=== PATIENT | female | born 1980 | race Caucasian/White ===

== ENCOUNTER 2016-10-09 08:18 | Emergency (ER) | payer MEDICARE, MEDICAID ==
[~2016-10-09] VITALS: Ht 162.6 cm; Wt 132.0 kg
[2016-10-09 08:25] VITALS: BP 126/82
[2016-10-09] MEDS ORDERED: NAPROXEN 500 MG TABLET PO ONE (09:00)
[2016-10-09] MEDS ORDERED: HYDROcodone/APAP 5/325MG 1 TAB TABLET PO ONE (09:00)
--- NOTE | 2016-10-09 09:03 | RAD ---
Indication: Right wrist pain, fall. Time of exam 0857 hours. 3 views of the right wrist were obtained. The distal radius and ulna are intact. The carpus is intact. Metacarpals are unremarkable. No fractures are seen. Impression: No acute bony abnormality is detected.
--- NOTE | 2016-10-09 09:04 | RAD ---
Indication: Right ankle pain. Time of exam 0857 hours. 3 views of the right ankle were obtained. Moderate soft tissue swelling is noted both medial and laterally. Ankle mortise is well maintained. The talar dome is smooth. No fracture or dislocation is identified. Impression: Soft tissue swelling. No acute bony abnormality is detected.
[2016-10-09] MEDS ORDERED: NAPR500T8 PO (09:26)
--- NOTE | 2016-10-09 09:26 | PHYS DOC ---
Past Medical History Past Medical History: Anxiety, Asthma, Bipolar, Depression, GERD, Other Additional Past Medical Histor: OCD, SOCIAL ANXIETY, BORDER LINE PERSONALITY DISORDER, PTSD, CARPAL TUNNEL Past Surgical History: Tonsillectomy Additional Past Surgical Histo: D&C Alcohol Use: None Drug Use: None Adult General Chief Complaint Chief Complaint: WRIST PAIN HPI HPI Patient is a 36 year old female with history of anxiety, asthma, depression, who presents today with right wrist pain that has been going on weeks. Patient describes the pain as throbbing. She states the pain is diffusely throughout the wrist. Patient is also complaining of right ankle pain mild in nature worse on walking. She states she fell out of her bed yesterday, she stated this exacerbated her wrist pain. Patient denies any loss of consciousness when she fell. She is in the ED with a significant other, both of them are playing on the electronic device. Review of Systems Review of Systems Constitutional: Denies fever or chills [] Eyes: Denies change in visual acuity, redness, or eye pain [] HENT: Denies nasal congestion or sore throat [] Musculoskeletal: Right wrist and right ankle pain. Integument: Denies rash or skin lesions [] Neurologic: Denies headache, focal weakness or sensory changes [] Endocrine: Denies polyuria or polydipsia [] Current Medications Current Medications Current Medications Medications (Trade) Dose Ordered Sig/Roxanne Start Time Stop Time Status Last Admin Dose Admin Acetaminophen/ Hydrocodone Bitart (Lortab 5/325) 1 tab 1X ONCE 10/09/16 09:00 10/09/16 09:03 DC 10/09/16 08:46 1 TAB Naproxen (Naprosyn) 500 mg 1X ONCE 10/09/16 09:00 10/09/16 09:03 DC 10/09/16 08:46 500 MG Allergies Allergies Allergies Coded Allergies Type Severity Reaction Last Updated Verified paroxetine Allergy Severe CANT BREATH 10/09/16 Yes Penicillins Allergy Intermediate SWELLING 10/09/16 Yes Physical Exam Physical Exam Constitutional: Well developed, well nourished, no acute distress, non-toxic appearance. [] HENT: Normocephalic, atraumatic, bilateral external ears normal, oropharynx moist, no oral exudates, nose normal. [] Eyes: PERRLA, EOMI, conjunctiva normal, no discharge. [] Abdomen: Bowel sounds normal, soft, no tenderness, no masses, no pulsatile masses. [] Skin: Warm, dry, no erythema, no rash. [] Back: No tenderness, no CVA tenderness. [] Extremities: Right wrist with no obvious deformity. No scaphoid pain or tenderness on exam. Full range of motion to the right wrist. Adequate radial medial and ulnar sensation to the right wrist and hand. +2 right radial pulse. Cap refill less than 2 seconds the right wrist and fingers. Right ankle with small amount of soft tissue swelling on the right lateral aspect. Tenderness on palpation of the right lateral ankle. Full range of motion to the right ankle. Patient able to flex and extend the right foot with no difficulty. +2 right pedal pulse. Cap refill less than 2 seconds the right lower extremity. Sensation intact to the right lower extremity Neurologic: Alert and oriented X 3, normal motor function, normal sensory function, no focal deficits noted. [] Psychologic: Affect normal, judgement normal, mood normal. [] Current Patient Data Vital Signs Vital Signs Date Time Temp Pulse Resp B/P (MAP) Pulse Ox O2 Delivery O2 Flow Rate FiO2 10/09/16 08:46 16 97 Room Air 10/09/16 08:25 98.8 77 126/82 (97) 98.8 EKG EKG [] Radiology/Procedures Radiology/Procedures []PROCEDURE: ANKLE RIGHT 3V Indication: Right ankle pain. Time of exam 0857 hours. 3 views of the right ankle were obtained. Moderate soft tissue swelling is noted both medial and laterally. Ankle mortise is well maintained. The talar dome is smooth. No fracture or dislocation is identified. Impression: Soft tissue swelling. No acute bony abnormality is detected. DICTATED and SIGNED BY: LIZ CRAIN MD DATE: 10/09/16 0901 CC: FLOR HARMON APRN ~ PROCEDURE: WRIST 3V RIGHT Indication: Right wrist pain, fall. Time of exam 0857 hours. 3 views of the right wrist were obtained. The distal radius and ulna are intact. The carpus is intact. Metacarpals are unremarkable. No fractures are seen. Impression: No acute bony abnormality is detected. DICTATED and SIGNED BY: LIZ CRAIN MD DATE: 10/09/16 0900 CC: FLOR HARMON APRN ~ Course & Med Decision Making Course & Med Decision Making Pertinent Labs and Imaging studies reviewed. (See chart for details) Patient is in the ED with right wrist pain and right ankle pain after falling out of her bed yesterday. There was no loss of consciousness. Right ankle and right wrist x-rays interpreted by radiologist are negative for any acute findings. Patient has right wrist and right ankle sprains. Chris applied to the right ankle and a Velcro splint to the right wrist by the ED RN, neurovascular exam done by me is normal, cap refill less than 2 seconds to the affected extremities. Ice elevation encouraged. Discharged with naproxen for pain. Follow -up with orthopedic doctor in one week if pain continues. Dragon Disclaimer Dragon Disclaimer This electronic medical record was generated, in whole or in part, using a voice recognition dictation system. Departure Departure Impression: Primary Impression: Fall from bed Additional Impressions: Right wrist sprain Right ankle sprain Disposition: HOME, SELF-CARE Condition: STABLE Referrals: ANJUM GALAN MD follow up in one week if pain continues Patient Instructions: Ankle Sprain, Wrist Sprain with [facility] Additional Instructions: You seen for right wrist and right ankle sprain. Wear the air cast to the right ankle and the Velcro splint to the right wrist as tolerated. Ice and elevate the extremities. Take the prescribed medicine as needed for pain. Follow-up with the provided orthopedic doctor in one week if pain continues. Scripts Naproxen (NAPROXEN) 500 Mg Tablet.dr 1 TAB PO BID, #60 TAB 1 Refill Prov: FLOR HARMON APRN 10/09/16 Problem Qualifiers Primary Impression: Fall from bed Encounter type: initial encounter Qualified Codes: W06.XXXA - Fall from bed , initial encounter Additional Impressions: Right wrist sprain Encounter type: initial encounter Qualified Codes: S63.501A - Unspecified sprain of right wrist, initial encounter Right ankle sprain Encounter type: initial encounter Involved ligament of ankle: unspecified ligament Qualified Codes: S93.401A - Sprain of unspecified ligament of right ankle, initial encounter FLOR HARMON WHEEL BRAIDER October 09, 2016 09:26
== END 2016-10-09 09:45 | disposition home or self-care (01) ==
LOC: ER 08:18
DX: S63.501A Unspecified sprain of right wrist, initial encounter (principal); S93.401A Sprain of unspecified ligament of right ankle, initial encounter; F41.9 Anxiety disorder, unspecified; J45.909 Unspecified asthma, uncomplicated; F31.9 Bipolar disorder, unspecified; K21.9 Gastro-esophageal reflux disease without esophagitis; F42.9 Obsessive-compulsive disorder, unspecified; F43.10 Post-traumatic stress disorder, unspecified; Z88.8 Allergy status to other drugs, medicaments and biological substances; Z88.0 Allergy status to penicillin; W06.XXXA Fall from bed, initial encounter; Y93.89 Activity, other specified; Y92.89 Other specified places as the place of occurrence of the external cause; Y99.8 Other external cause status
CPT/HCPCS: 29125; 73110; 73610; 99284-25

== ENCOUNTER 2017-04-21 22:28 | Emergency (ER) | payer MEDICARE, MEDICAID ==
[~2017-04-21] VITALS: Ht 162.6 cm; Wt 139.3 kg
[~2017-04-21 22:28] MED LIST: NAPR500T8 PO
[2017-04-21] MEDS ORDERED: ACETAMINOPHEN 500 MG TABLET PO ONE (23:30)
[2017-04-21] MEDS ORDERED: CYCLOBENZAPRINE 10 MG TABLET. PO ONE (23:30)
[2017-04-21] MEDS ORDERED: traMADol 50 MG TABLET PO ONE (23:30)
[2017-04-21] MEDS ORDERED: METH4TAB2 PO (23:40)
[2017-04-21] MEDS ORDERED: CYCL10TA2 PO (23:40)
--- NOTE | 2017-04-21 23:40 | PHYS DOC ---
Past Medical History Past Medical History: Anxiety, Asthma, Bipolar, Depression, GERD, Other Additional Past Medical Histor: OCD, SOCIAL ANXIETY, BORDER LINE PERSONALITY DISORDER, PTSD, CARPAL TUNNEL Past Surgical History: Tonsillectomy Additional Past Surgical Histo: D&C Alcohol Use: None Drug Use: None Adult General Chief Complaint Chief Complaint: ANKLE PROBLEM HPI HPI Patient is a 36 year old female with history of depression and anxiety and bipolar who presents today with mild right lateral ankle pain that began today after she fell out of her bed. Patient denies any loss of consciousness. She has history of weak ankles and falls. Patient describes the pain as sharp and intermittent and worse on weight bearing. Review of Systems Review of Systems Constitutional: Denies fever or chills [] Musculoskeletal: Right ankle pain Integument: Denies rash or skin lesions [] Neurologic: Denies headache, focal weakness or sensory changes [] All other systems were reviewed and found to be within normal limits, except as documented in this note. Current Medications Current Medications Current Medications Medications (Trade) Dose Ordered Sig/Roxanne Start Time Stop Time Status Last Admin Dose Admin Acetaminophen (Tylenol) 1,000 mg 1X ONCE 04/21/17 23:30 04/21/17 23:32 DC Cyclobenzaprine HCl (Flexeril) 10 mg 1X ONCE 04/21/17 23:30 04/21/17 23:32 DC Tramadol HCl (Ultram) 50 mg 1X ONCE 04/21/17 23:30 04/21/17 23:31 UNV Allergies Allergies Allergies Coded Allergies Type Severity Reaction Last Updated Verified paroxetine Allergy Severe CANT BREATH 10/09/16 Yes Penicillins Allergy Intermediate SWELLING 10/09/16 Yes ibuprofen Allergy Unknown 04/21/17 Yes Physical Exam Physical Exam Constitutional: Well developed, well nourished, no acute distress, non-toxic appearance. [] Skin: Warm, dry, no erythema, no rash. [] Back: No tenderness, no CVA tenderness. [] Extremities: Right ankle with no obvious deformity. No tenderness on palpation of the right ankle. Full range of motion to the right ankle including flexion and distention of the foot. +2 right pedal pulse. Cap refill less than 2 seconds the right toes. Sensation intact to the right lower extremity. Neurologic: Alert and oriented X 3, normal motor function, normal sensory function, no focal deficits noted. [] Psychologic: Affect normal, judgement normal, mood normal. [] Current Patient Data Vital Signs Vital Signs Date Time Temp Pulse Resp B/P (MAP) Pulse Ox O2 Delivery O2 Flow Rate FiO2 04/21/17 23:10 98.7 84 20 114/66 (82) 95 Room Air 98.7 EKG EKG [] Radiology/Procedures Radiology/Procedures [] Course & Med Decision Making Course & Med Decision Making Pertinent Labs and Imaging studies reviewed. (See chart for details) Patient is in the ED with right ankle pain after falling out of bed. Right ankle x-rays interpreted by Dr. Berman were negative for any acute findings. Patient was placed in an air cast by the ED RN, neurovascular exam is intact, provided crutches. Discharged with cyclobenzaprine and Medrol Dosepak as well as instructed to take Tylenol [id number]. She states she is allergic to ibuprofen. Dragon Disclaimer Dragon Disclaimer This electronic medical record was generated, in whole or in part, using a voice recognition dictation system. Departure Departure Impression: Primary Impression: Right ankle sprain Disposition: 01 HOME, SELF-CARE Condition: STABLE Referrals: RAAD BARCENAS (PCP) SANTA MCCRACKEN MD follow up in one week Patient Instructions: Ankle Sprain Additional Instructions: You have right ankle sprain Wear the air cast as tolerated Ice and elevate the extremity Follow up with the provided orthopedic doctor in one week Scripts Cyclobenzaprine Hcl (CYCLOBENZAPRINE HCL) 10 Mg Tablet 1 TAB PO TID, #30 TAB Prov: FLOR HARMON ABAD 04/21/17 Methylprednisolone (MEDROL) 4 Mg Tab.ds.pk 1 PKG PO UD, #1 PKG Prov: FLOR HARMON ABAD 04/21/17 Problem Qualifiers Primary Impression: Right ankle sprain Encounter type: initial encounter Involved ligament of ankle: unspecified ligament Qualified Codes: S93.401A - Sprain of unspecified ligament of right ankle, initial encounter FLOR HARMON ABAD Apr 21, 2017 23:40
--- NOTE | 2017-04-22 08:00 | RAD ---
EXAM: Right ankle 3 views. HISTORY: Fall with right ankle pain. COMPARISON: 10/09/2016. FINDINGS: Three views of the right ankle are obtained. No fractures are identified. Alignment is normal. Joint spaces are maintained. IMPRESSION: 1. No fracture.
== END 2017-04-22 00:02 | disposition home or self-care (01) ==
LOC: ER 22:28
DX: S93.401A Sprain of unspecified ligament of right ankle, initial encounter (principal); F41.9 Anxiety disorder, unspecified; J45.909 Unspecified asthma, uncomplicated; F31.9 Bipolar disorder, unspecified; K21.9 Gastro-esophageal reflux disease without esophagitis; F42.9 Obsessive-compulsive disorder, unspecified; F43.10 Post-traumatic stress disorder, unspecified; Z88.0 Allergy status to penicillin; Z88.6 Allergy status to analgesic agent; Z88.8 Allergy status to other drugs, medicaments and biological substances; W06.XXXA Fall from bed, initial encounter; Y93.89 Activity, other specified; Y92.89 Other specified places as the place of occurrence of the external cause; Y99.8 Other external cause status
CPT/HCPCS: 29515; 73610; 99284-25

== ENCOUNTER 2017-06-23 20:26 | Emergency (ER) | payer MEDICARE, MEDICAID ==
[2017-06-23 20:58] LABS: URINE HCG POC HCG NEGATIVE (Negative)
[2017-06-23 21:10] LABS: ADD MAN DIFF? NO
[2017-06-23 21:12] LABS: BASO % 0 % (0-3); EOS # 0.2 x10^3/uL (0.0-0.7); EOS % 1 % (0-3); HEMATOCRIT 37.9 % (36.0-47.0); HEMOGLOBIN 12.8 g/dL (12.0-15.5); LYMPH # 2.1 x10^3/uL (1.0-4.8); LYMPH % 17 % (24-48); MEAN CORPUSCULAR HEMOGLOBIN 28 pg (25-35); MEAN CORPUSCULAR HGB CONC 34 g/dL (31-37); MEAN CORPUSCULAR VOLUME 83 fL (79-100); MONO # 0.5 x10^3/uL (0.0-1.1); MONO % 4 % (0-9); NEUT # 9.3 x10^3uL (1.8-7.7); NEUT % 77 % (31-73); PLATELET COUNT 358 x10^3/uL (140-400); RED BLOOD COUNT 4.59 x10^6/uL (3.50-5.40); RED CELL DISTRIBUTION WIDTH 14.4 % (11.5-14.5); WHITE BLOOD COUNT 12.2 x10^3/uL (4.0-11.0)
[2017-06-23 21:15] LABS: BILIRUBIN,URINE NEGATIVE (NEG); CLARITY,URINE CLEAR; COLOR,URINE YELLOW; GLUCOSE,URINE NEGATIVE (NEG); NITRITE,URINE NEGATIVE (NEG); PH,URINE 5.5; PROTEIN,URINE NEGATIVE (NEG-TRACE); UROBILINOGEN,URINE 0.2 mg/dL (0.2 mg/dL)
[2017-06-23 21:21] LABS: ANION GAP 8 (6-14); BLOOD UREA NITROGEN 8 mg/dL (7-20); BUN/CREATININE RATIO 11 (6-20); CALCIUM 8.8 mg/dL (8.5-10.1); CARBON DIOXIDE 28 mmol/L (21-32); CHLORIDE 105 mmol/L (98-107); CREATININE 0.7 mg/dL (0.6-1.0); GFR 93.6; GLUCOSE 98 mg/dL (70-99); POTASSIUM 3.5 mmol/L (3.5-5.1); SODIUM 141 mmol/L (136-145)
[2017-06-23 21:27] LABS: ALBUMIN 3.6 g/dL (3.4-5.0); ALBUMIN/GLOBULIN RATIO 0.9 (1.0-1.7); ALK PHOS 97 U/L (46-116); ALT (SGPT) 23 U/L (14-59); AST (SGOT) 13 U/L (15-37); BACTERIA,URINE MODERATE /HPF (0-FEW); LIPASE 85 U/L (73-393); RBC,URINE 0 /HPF (0-2); SQUAMOUS EPITHELIAL CELL,UR MANY /LPF; TOTAL BILIRUBIN 0.3 mg/dL (0.2-1.0); TOTAL PROTEIN 7.5 g/dL (6.4-8.2)
[2017-06-23] MEDS: ONDANSETRON PF 4 MG/2 ML VIAL. IV (22:04)
[2017-06-23] MEDS: HYDROmorphone 2 MG/ML VIAL IV/SQ (22:04)
[2017-06-23] MEDS: IV NORMAL SALINE 1000ML BAG 1,000 ML IV (22:05)
[2017-06-23] MEDS ORDERED: CONTRAST GIVEN MC (22:30)
[2017-06-23] MEDS: IOHEXOL 300 MG/ML 100ML VIAL. IV (22:40)
== END 2017-06-24 00:25 | disposition home or self-care (01) ==
LOC: ER 06-24 00:25
DX: R10.31 Right lower quadrant pain (principal); D72.829 Elevated white blood cell count, unspecified; K21.9 Gastro-esophageal reflux disease without esophagitis; J45.909 Unspecified asthma, uncomplicated; F43.10 Post-traumatic stress disorder, unspecified; F42.9 Obsessive-compulsive disorder, unspecified; F31.9 Bipolar disorder, unspecified; F12.10 Cannabis abuse, uncomplicated; Z88.0 Allergy status to penicillin; Z88.8 Allergy status to other drugs, medicaments and biological substances
CPT/HCPCS: 36415; 74177; 76830; 76856; 80053; 81001; 81025; 83690; 85025; 87086; 87186; 96361; 96374; 96375; 99285-25; J1170; J2405; J7030; Q9967

== ENCOUNTER 2017-07-15 09:22 | Day surgery (SDC) | payer MEDICARE, MEDICAID ==
[~2017-07-15 09:22] MED LIST changes: +HYDROmorphone 2 MG/ML VIAL IV; +LIDOCAINE 1% PF 2 ML VIAL. ID; +LIDOCAINE 2% PF Vial for OR 5 ML VIAL.; +MIDAZOLAM HCL/PF 2 MG/2 ML VIAL.; -NAPR500T8 PO; +ONDANSETRON PF 4 MG/2 ML VIAL. IV; +PROPOFOL 20 ML IV; +ROCURONIUM 50 MG/5 ML VIAL.; +fentaNYL PF VIAL 100 MCG/2 ML VIAL; +fentaNYL PF VIAL 100 MCG/2 ML VIAL IV
[2017-07-15] MEDS ORDERED: SURGICEL HEMOSTAT 4X8 EACH. ×2 (09:47)
[2017-07-15 10:03] LABS: NEG OBC UR NEG; POS OBC UR POS; U PREG PATIENT NEGATIVE (NEG)
[2017-07-15 10:13] LABS: POC GLUCOSE 134 mg/dL (70-99)
[2017-07-15] MEDS: IV RINGERS,LACTATED 1000ML 1,000 ML IV ×2 (10:20)
[2017-07-15] MEDS: CLINDAMYCIN 900MG PREMIX 50 ML IV ×2 (10:35)
[2017-07-15] MEDS: BUPIVACAINE-EPI 0.25%-1:200000 50 ML VIAL. ×2 (10:50)
[2017-07-15] MEDS ORDERED: ONDANSETRON PF 4 MG/2 ML VIAL. ×2 (11:03)
[2017-07-15] MEDS ORDERED: GLYCOPYRROLATE 1 MG/5 ML VIAL. ×2 (11:03)
[2017-07-15] MEDS ORDERED: DEXAMETHASONE SOD PHOS 20 MG/5 ML VIAL. ×2 (11:03)
[2017-07-15] MEDS ORDERED: NEOSTIGMINE METHYLSULFATE 5 MG/5 ML SYRINGE. ×2 (11:03)
[2017-07-15] MEDS ORDERED: ePHEDrine PF IN SALINE 50 MG/5 ML DISP.SYRIN IV (11:04)
[2017-07-15] MEDS ORDERED: fentaNYL PF VIAL 100 MCG/2 ML VIAL ×2 (11:48)
[2017-07-15] MEDS ORDERED: SEVOFLURANE > 120 MINUTES. IH ×2 (12:04)
[2017-07-15 12:31] LABS: POC GLUCOSE 144 mg/dL (70-99)
[2017-07-15] MEDS: PROCHLORPERAZINE 10 MG/2 ML VIAL. IV ×2 (12:39)
[2017-07-15] MEDS: fentaNYL PF VIAL 100 MCG/2 ML VIAL IV ×4 (12:40→12:47)
[2017-07-15] MEDS: MORPHINE SULFATE 2 MG/ML DISP.SYRIN. IV ×4 (12:57→13:13)
[2017-07-15] MEDS ORDERED: oxyCODONE/APAP 7.5/325 1 TAB TABLET PO ×2 (13:15)
[2017-07-15] MEDS: oxyCODONE/APAP 7.5/325 1 TAB TABLET PO ×2 (13:48)
== END 2017-07-15 14:32 | disposition home or self-care (01) ==
LOC: SURG 09:22
DX: N83.201 Unspecified ovarian cyst, right side (principal); E78.00 Pure hypercholesterolemia, unspecified; E66.9 Obesity, unspecified; F41.9 Anxiety disorder, unspecified; F17.200 Nicotine dependence, unspecified, uncomplicated; Z72.0 Tobacco use; Z79.899 Other long term (current) drug therapy; Z86.69 Personal history of other diseases of the nervous system and sense organs; Z87.440 Personal history of urinary (tract) infections; Z87.39 Personal history of other diseases of the musculoskeletal system and connective tissue; Z72.89 Other problems related to lifestyle; Z88.1 Allergy status to other antibiotic agents; Z88.0 Allergy status to penicillin; Z88.8 Allergy status to other drugs, medicaments and biological substances
CPT/HCPCS: 58661; 81025; 82962; 88307; A4215; C1782; J0780; J1100; J2250; J2270; J2405; J2704; J2710; J3010; J3490; J7030; J7120

== ENCOUNTER 2017-07-18 03:55 | Observation (INO) | payer MEDICARE, MEDICAID ==
[2017-07-18] MEDS ORDERED: ACETAMINOPHEN 325 MG TABLET. PO ×2 (04:30)
[2017-07-18 04:47] LABS: ADD MAN DIFF? NO
[2017-07-18 04:49] LABS: BASO # 0.1 x10^3/uL (0.0-0.2); BASO % 1 % (0-3); EOS # 0.3 x10^3/uL (0.0-0.7); EOS % 3 % (0-3); HEMATOCRIT 37.3 % (36.0-47.0); HEMOGLOBIN 12.5 g/dL (12.0-15.5); LYMPH # 2.4 x10^3/uL (1.0-4.8); LYMPH % 21 % (24-48); MEAN CORPUSCULAR HEMOGLOBIN 28 pg (25-35); MEAN CORPUSCULAR HGB CONC 34 g/dL (31-37); MEAN CORPUSCULAR VOLUME 82 fL (79-100); MONO # 0.6 x10^3/uL (0.0-1.1); MONO % 5 % (0-9); NEUT # 7.8 x10^3uL (1.8-7.7); NEUT % 70 % (31-73); PLATELET COUNT 336 x10^3/uL (140-400); RED BLOOD COUNT 4.55 x10^6/uL (3.50-5.40); RED CELL DISTRIBUTION WIDTH 14.5 % (11.5-14.5); WHITE BLOOD COUNT 11.1 x10^3/uL (4.0-11.0)
[2017-07-18 04:56] LABS: ANION GAP 5 (6-14); BLOOD UREA NITROGEN 13 mg/dL (7-20); BUN/CREATININE RATIO 13 (6-20); CALCIUM 9.2 mg/dL (8.5-10.1); CARBON DIOXIDE 31 mmol/L (21-32); CHLORIDE 102 mmol/L (98-107); GFR 62.1; GLUCOSE 122 mg/dL (70-99); POTASSIUM 3.9 mmol/L (3.5-5.1); SODIUM 138 mmol/L (136-145)
[2017-07-18] MEDS ORDERED: fentaNYL PF VIAL 100 MCG/2 ML VIAL IV ×2 (05:00)
[2017-07-18] MEDS ORDERED: ONDANSETRON PF 4 MG/2 ML VIAL. IV ×2 (05:00)
[2017-07-18] MEDS: IV NORMAL SALINE 1000ML BAG 1,000 ML IV ×6 (05:03→21:00)
[2017-07-18] MEDS: ONDANSETRON PF 4 MG/2 ML VIAL. IV ×2 (05:03)
[2017-07-18 05:04] LABS: ALBUMIN 3.4 g/dL (3.4-5.0); ALBUMIN/GLOBULIN RATIO 0.9 (1.0-1.7); ALK PHOS 97 U/L (46-116); ALT (SGPT) 34 U/L (14-59); AST (SGOT) 23 U/L (15-37); TOTAL BILIRUBIN 0.2 mg/dL (0.2-1.0); TOTAL PROTEIN 7.1 g/dL (6.4-8.2)
[2017-07-18] MEDS: fentaNYL PF VIAL 100 MCG/2 ML VIAL IV ×2 (05:04)
[2017-07-18] MEDS: ceFAZolin 1GM IVPB FOR OMNI 1 GM/50 ML BAG IV ×2 (05:04)
[2017-07-18] MEDS: oxyCODONE/APAP 7.5/325 1 TAB TABLET PO ×8 (09:36→22:02)
[2017-07-19] MEDS: oxyCODONE/APAP 7.5/325 1 TAB TABLET PO ×6 (04:37→13:17)
== END 2017-07-19 18:08 | disposition home or self-care (01) ==
LOC: ER 03:55 → 3 NORTH 04:24
DX: T81.30XA Disruption of wound, unspecified, initial encounter (principal); T81.4XXA Infection following a procedure, initial encounter; J45.909 Unspecified asthma, uncomplicated; K21.9 Gastro-esophageal reflux disease without esophagitis; F43.10 Post-traumatic stress disorder, unspecified; F42.9 Obsessive-compulsive disorder, unspecified
CPT/HCPCS: 36415; 80053; 85025; 87071; 87075; 87205; 96361; 96374; 96375; 99285; G0378; G0379; J0690; J2405; J3010; J7030

== ENCOUNTER → 2017-07-23 | Outpatient (CLI) | payer MEDICARE, MEDICAID | END | disposition home or self-care (01) | LOC: PMGWOUND 09:28 | DX: T81.31XA Disruption of external operation (surgical) wound, not elsewhere classified, initial encounter (principal); F31.9 Bipolar disorder, unspecified; F41.8 Other specified anxiety disorders; F43.10 Post-traumatic stress disorder, unspecified; E78.5 Hyperlipidemia, unspecified; K21.9 Gastro-esophageal reflux disease without esophagitis; J45.909 Unspecified asthma, uncomplicated; F17.200 Nicotine dependence, unspecified, uncomplicated; F12.10 Cannabis abuse, uncomplicated; E78.00 Pure hypercholesterolemia, unspecified; E66.9 Obesity, unspecified; Z68.43 Body mass index [BMI] 50.0-59.9, adult; Z72.89 Other problems related to lifestyle; Y83.8 Other surgical procedures as the cause of abnormal reaction of the patient, or of later complication, without mention of misadventure at the time of the procedure | CPT/HCPCS: 97605; 97607 ==

== ENCOUNTER → 2017-07-26 | Outpatient (CLI) | payer MEDICARE, MEDICAID | END | disposition home or self-care (01) | LOC: PMGWOUND 11:26 | DX: T81.31XD Disruption of external operation (surgical) wound, not elsewhere classified, subsequent encounter (principal); F31.9 Bipolar disorder, unspecified; F41.8 Other specified anxiety disorders; F43.10 Post-traumatic stress disorder, unspecified; E78.5 Hyperlipidemia, unspecified; K21.9 Gastro-esophageal reflux disease without esophagitis; J45.909 Unspecified asthma, uncomplicated; F17.200 Nicotine dependence, unspecified, uncomplicated; F12.10 Cannabis abuse, uncomplicated; E78.00 Pure hypercholesterolemia, unspecified; E66.9 Obesity, unspecified; Z68.43 Body mass index [BMI] 50.0-59.9, adult; Z72.89 Other problems related to lifestyle; Y83.8 Other surgical procedures as the cause of abnormal reaction of the patient, or of later complication, without mention of misadventure at the time of the procedure | CPT/HCPCS: 97605; 97607 ==

== ENCOUNTER → 2017-07-30 | Outpatient (CLI) | payer MEDICARE, MEDICAID | END | disposition home or self-care (01) | LOC: PMGWOUND 11:31 | DX: T81.31XD Disruption of external operation (surgical) wound, not elsewhere classified, subsequent encounter (principal); F31.9 Bipolar disorder, unspecified; F41.8 Other specified anxiety disorders; F43.10 Post-traumatic stress disorder, unspecified; E78.5 Hyperlipidemia, unspecified; R11.2 Nausea with vomiting, unspecified; K21.9 Gastro-esophageal reflux disease without esophagitis; J45.909 Unspecified asthma, uncomplicated; F17.200 Nicotine dependence, unspecified, uncomplicated; F12.10 Cannabis abuse, uncomplicated; E78.00 Pure hypercholesterolemia, unspecified; E66.9 Obesity, unspecified; Z68.43 Body mass index [BMI] 50.0-59.9, adult; Z72.89 Other problems related to lifestyle; Y83.8 Other surgical procedures as the cause of abnormal reaction of the patient, or of later complication, without mention of misadventure at the time of the procedure | CPT/HCPCS: 97605; 97607 ==

== ENCOUNTER 2017-07-31 21:11 | Emergency (ER) | payer MEDICARE, MEDICAID ==
[2017-07-31] MEDS: oxyCODONE/APAP 7.5/325 1 TAB TABLET PO (23:13)
[2017-07-31 23:28] LABS: INFLUENZA A PATIENT NEGATIVE (NEGATIVE)
[2017-07-31 23:31] LABS: INFLUENZA B PATIENT POSITIVE (NEGATIVE); OBC FLU VALID
[2017-07-31] MEDS: OSELTAMIVIR 75 MG CAPSULE PO (23:45)
== END 2017-08-01 00:20 | disposition home or self-care (01) ==
LOC: ER 08-01 00:20
DX: J10.1 Influenza due to other identified influenza virus with other respiratory manifestations (principal); F43.10 Post-traumatic stress disorder, unspecified; J45.909 Unspecified asthma, uncomplicated; F42.9 Obsessive-compulsive disorder, unspecified; K21.9 Gastro-esophageal reflux disease without esophagitis; F31.9 Bipolar disorder, unspecified; Z90.721 Acquired absence of ovaries, unilateral; F12.10 Cannabis abuse, uncomplicated; Z88.0 Allergy status to penicillin; Z88.8 Allergy status to other drugs, medicaments and biological substances
CPT/HCPCS: 71046; 87804; 87804-59; 99285-25

== ENCOUNTER → 2017-08-02 | Outpatient (CLI) | payer MEDICARE, MEDICAID | END | disposition home or self-care (01) | LOC: PMGWOUND 11:33 | DX: T81.31XD Disruption of external operation (surgical) wound, not elsewhere classified, subsequent encounter (principal); F31.9 Bipolar disorder, unspecified; F41.8 Other specified anxiety disorders; F43.10 Post-traumatic stress disorder, unspecified; E78.5 Hyperlipidemia, unspecified; R11.2 Nausea with vomiting, unspecified; K21.9 Gastro-esophageal reflux disease without esophagitis; J45.909 Unspecified asthma, uncomplicated; F12.10 Cannabis abuse, uncomplicated; E78.00 Pure hypercholesterolemia, unspecified; E66.9 Obesity, unspecified; Z68.43 Body mass index [BMI] 50.0-59.9, adult; Z87.891 Personal history of nicotine dependence; Z72.89 Other problems related to lifestyle; Y83.8 Other surgical procedures as the cause of abnormal reaction of the patient, or of later complication, without mention of misadventure at the time of the procedure | CPT/HCPCS: 97605 ==

== ENCOUNTER → 2017-08-05 | Outpatient (CLI) | payer MEDICARE, MEDICAID | END | disposition home or self-care (01) | LOC: PMGWOUND 12:10 | DX: T81.31XD Disruption of external operation (surgical) wound, not elsewhere classified, subsequent encounter (principal); F31.9 Bipolar disorder, unspecified; F41.8 Other specified anxiety disorders; F43.10 Post-traumatic stress disorder, unspecified; E78.5 Hyperlipidemia, unspecified; R11.2 Nausea with vomiting, unspecified; K21.9 Gastro-esophageal reflux disease without esophagitis; J45.909 Unspecified asthma, uncomplicated; F12.10 Cannabis abuse, uncomplicated; E78.00 Pure hypercholesterolemia, unspecified; E66.9 Obesity, unspecified; Z68.43 Body mass index [BMI] 50.0-59.9, adult; Z87.891 Personal history of nicotine dependence; Z72.89 Other problems related to lifestyle; Y83.8 Other surgical procedures as the cause of abnormal reaction of the patient, or of later complication, without mention of misadventure at the time of the procedure | CPT/HCPCS: 97605 ==

== ENCOUNTER → 2017-08-07 | Outpatient (CLI) | payer MEDICARE, MEDICAID | END | disposition home or self-care (01) | LOC: PMGWOUND 12:04 | DX: T81.89XD Other complications of procedures, not elsewhere classified, subsequent encounter (principal); F31.9 Bipolar disorder, unspecified; K21.9 Gastro-esophageal reflux disease without esophagitis; E78.5 Hyperlipidemia, unspecified; E66.9 Obesity, unspecified; E78.00 Pure hypercholesterolemia, unspecified; J45.909 Unspecified asthma, uncomplicated; F12.10 Cannabis abuse, uncomplicated; Z87.891 Personal history of nicotine dependence; Z90.721 Acquired absence of ovaries, unilateral; F41.8 Other specified anxiety disorders; Z72.89 Other problems related to lifestyle; Y83.8 Other surgical procedures as the cause of abnormal reaction of the patient, or of later complication, without mention of misadventure at the time of the procedure | CPT/HCPCS: 97605 ==

== ENCOUNTER → 2017-08-09 | Outpatient (CLI) | payer MEDICARE, MEDICAID | END | disposition home or self-care (01) | LOC: PMGWOUND 11:30 | DX: T81.31XD Disruption of external operation (surgical) wound, not elsewhere classified, subsequent encounter (principal); F31.9 Bipolar disorder, unspecified; F12.10 Cannabis abuse, uncomplicated; K21.9 Gastro-esophageal reflux disease without esophagitis; E78.5 Hyperlipidemia, unspecified; E66.9 Obesity, unspecified; F41.8 Other specified anxiety disorders; J45.909 Unspecified asthma, uncomplicated; E78.00 Pure hypercholesterolemia, unspecified; Z87.891 Personal history of nicotine dependence; Z72.89 Other problems related to lifestyle; Z68.43 Body mass index [BMI] 50.0-59.9, adult; Y83.8 Other surgical procedures as the cause of abnormal reaction of the patient, or of later complication, without mention of misadventure at the time of the procedure | CPT/HCPCS: 97605 ==

== ENCOUNTER → 2017-08-12 | Outpatient (CLI) | payer MEDICARE, MEDICAID | END | disposition home or self-care (01) | LOC: PMGWOUND 11:16 | DX: T81.31XD Disruption of external operation (surgical) wound, not elsewhere classified, subsequent encounter (principal); F31.9 Bipolar disorder, unspecified; F12.10 Cannabis abuse, uncomplicated; K21.9 Gastro-esophageal reflux disease without esophagitis; E78.5 Hyperlipidemia, unspecified; E66.9 Obesity, unspecified; F41.8 Other specified anxiety disorders; J45.909 Unspecified asthma, uncomplicated; E78.00 Pure hypercholesterolemia, unspecified; Z87.891 Personal history of nicotine dependence; Z72.89 Other problems related to lifestyle; Z68.43 Body mass index [BMI] 50.0-59.9, adult; Y83.8 Other surgical procedures as the cause of abnormal reaction of the patient, or of later complication, without mention of misadventure at the time of the procedure | CPT/HCPCS: 97605 ==

== ENCOUNTER → 2017-08-14 | Outpatient (CLI) | payer MEDICARE, MEDICAID | END | disposition home or self-care (01) | LOC: PMGWOUND 07:46 | DX: T81.31XD Disruption of external operation (surgical) wound, not elsewhere classified, subsequent encounter (principal); F31.9 Bipolar disorder, unspecified; F12.10 Cannabis abuse, uncomplicated; K21.9 Gastro-esophageal reflux disease without esophagitis; E78.5 Hyperlipidemia, unspecified; E66.9 Obesity, unspecified; F41.8 Other specified anxiety disorders; J45.909 Unspecified asthma, uncomplicated; E78.00 Pure hypercholesterolemia, unspecified; Z87.891 Personal history of nicotine dependence; Z72.89 Other problems related to lifestyle; Z68.43 Body mass index [BMI] 50.0-59.9, adult; Y83.8 Other surgical procedures as the cause of abnormal reaction of the patient, or of later complication, without mention of misadventure at the time of the procedure | CPT/HCPCS: 97605 ==

== ENCOUNTER → 2017-08-16 | Outpatient (CLI) | payer MEDICARE, MEDICAID | END | disposition home or self-care (01) | LOC: PMGWOUND 07:57 | DX: T81.31XD Disruption of external operation (surgical) wound, not elsewhere classified, subsequent encounter (principal); F31.9 Bipolar disorder, unspecified; F12.10 Cannabis abuse, uncomplicated; K21.9 Gastro-esophageal reflux disease without esophagitis; E78.5 Hyperlipidemia, unspecified; E66.9 Obesity, unspecified; F41.8 Other specified anxiety disorders; J45.909 Unspecified asthma, uncomplicated; E78.00 Pure hypercholesterolemia, unspecified; Z87.891 Personal history of nicotine dependence; Z72.89 Other problems related to lifestyle; Z68.43 Body mass index [BMI] 50.0-59.9, adult; Y83.8 Other surgical procedures as the cause of abnormal reaction of the patient, or of later complication, without mention of misadventure at the time of the procedure | CPT/HCPCS: 97605 ==

== ENCOUNTER → 2017-08-19 | Outpatient (CLI) | payer MEDICARE, MEDICAID | END | disposition home or self-care (01) | LOC: PMGWOUND 07:34 | DX: T81.31XD Disruption of external operation (surgical) wound, not elsewhere classified, subsequent encounter (principal); F31.9 Bipolar disorder, unspecified; F12.10 Cannabis abuse, uncomplicated; K21.9 Gastro-esophageal reflux disease without esophagitis; E78.5 Hyperlipidemia, unspecified; E66.9 Obesity, unspecified; F41.8 Other specified anxiety disorders; J45.909 Unspecified asthma, uncomplicated; E78.00 Pure hypercholesterolemia, unspecified; Z87.891 Personal history of nicotine dependence; Z72.89 Other problems related to lifestyle; Z68.43 Body mass index [BMI] 50.0-59.9, adult; Y83.8 Other surgical procedures as the cause of abnormal reaction of the patient, or of later complication, without mention of misadventure at the time of the procedure | CPT/HCPCS: 97605 ==

== ENCOUNTER → 2017-08-21 | Outpatient (CLI) | payer MEDICARE, MEDICAID | END | disposition home or self-care (01) | LOC: PMGWOUND 07:48 | DX: T81.31XD Disruption of external operation (surgical) wound, not elsewhere classified, subsequent encounter (principal); F31.9 Bipolar disorder, unspecified; E78.5 Hyperlipidemia, unspecified; F41.9 Anxiety disorder, unspecified; K21.9 Gastro-esophageal reflux disease without esophagitis; E66.9 Obesity, unspecified; Z68.43 Body mass index [BMI] 50.0-59.9, adult; E78.00 Pure hypercholesterolemia, unspecified; F12.10 Cannabis abuse, uncomplicated; Z87.891 Personal history of nicotine dependence; Y83.8 Other surgical procedures as the cause of abnormal reaction of the patient, or of later complication, without mention of misadventure at the time of the procedure | CPT/HCPCS: 97605 ==

== ENCOUNTER → 2017-08-23 | Outpatient (CLI) | payer MEDICARE, MEDICAID | END | disposition home or self-care (01) | LOC: PMGWOUND 07:45 | DX: T81.31XD Disruption of external operation (surgical) wound, not elsewhere classified, subsequent encounter (principal); F31.9 Bipolar disorder, unspecified; E78.5 Hyperlipidemia, unspecified; F41.9 Anxiety disorder, unspecified; K21.9 Gastro-esophageal reflux disease without esophagitis; E66.9 Obesity, unspecified; E78.00 Pure hypercholesterolemia, unspecified; F12.10 Cannabis abuse, uncomplicated; Z68.43 Body mass index [BMI] 50.0-59.9, adult; Z87.891 Personal history of nicotine dependence; Y83.8 Other surgical procedures as the cause of abnormal reaction of the patient, or of later complication, without mention of misadventure at the time of the procedure | CPT/HCPCS: 97605 ==

== ENCOUNTER → 2017-08-26 | Outpatient (CLI) | payer MEDICARE, MEDICAID | END | disposition home or self-care (01) | LOC: PMGWOUND 07:37 | DX: T81.31XD Disruption of external operation (surgical) wound, not elsewhere classified, subsequent encounter (principal); F31.9 Bipolar disorder, unspecified; E78.5 Hyperlipidemia, unspecified; F41.9 Anxiety disorder, unspecified; K21.9 Gastro-esophageal reflux disease without esophagitis; E66.9 Obesity, unspecified; E78.00 Pure hypercholesterolemia, unspecified; F12.10 Cannabis abuse, uncomplicated; Z68.43 Body mass index [BMI] 50.0-59.9, adult; Z87.891 Personal history of nicotine dependence; Y83.8 Other surgical procedures as the cause of abnormal reaction of the patient, or of later complication, without mention of misadventure at the time of the procedure | CPT/HCPCS: 97605 ==

== ENCOUNTER → 2017-08-28 | Outpatient (CLI) | payer MEDICARE, MEDICAID | END | disposition home or self-care (01) | LOC: PMGWOUND 08:26 | DX: T81.31XD Disruption of external operation (surgical) wound, not elsewhere classified, subsequent encounter (principal); F31.9 Bipolar disorder, unspecified; E78.5 Hyperlipidemia, unspecified; F41.9 Anxiety disorder, unspecified; K21.9 Gastro-esophageal reflux disease without esophagitis; E66.9 Obesity, unspecified; E78.00 Pure hypercholesterolemia, unspecified; F12.10 Cannabis abuse, uncomplicated; Z68.43 Body mass index [BMI] 50.0-59.9, adult; Z87.891 Personal history of nicotine dependence; Y83.8 Other surgical procedures as the cause of abnormal reaction of the patient, or of later complication, without mention of misadventure at the time of the procedure | CPT/HCPCS: 97605 ==

== ENCOUNTER → 2017-08-30 | Outpatient (CLI) | payer MEDICARE, MEDICAID | END | disposition home or self-care (01) | LOC: PMGWOUND 07:39 | DX: T81.31XD Disruption of external operation (surgical) wound, not elsewhere classified, subsequent encounter (principal); F31.9 Bipolar disorder, unspecified; E78.5 Hyperlipidemia, unspecified; F41.9 Anxiety disorder, unspecified; K21.9 Gastro-esophageal reflux disease without esophagitis; E66.9 Obesity, unspecified; E78.00 Pure hypercholesterolemia, unspecified; F12.10 Cannabis abuse, uncomplicated; Z68.43 Body mass index [BMI] 50.0-59.9, adult; Z87.891 Personal history of nicotine dependence; Y83.8 Other surgical procedures as the cause of abnormal reaction of the patient, or of later complication, without mention of misadventure at the time of the procedure | CPT/HCPCS: 97605 ==

== ENCOUNTER → 2017-09-02 | Outpatient (CLI) | payer MEDICARE, MEDICAID | END | disposition home or self-care (01) | LOC: PMGWOUND 07:46 | DX: T81.31XD Disruption of external operation (surgical) wound, not elsewhere classified, subsequent encounter (principal); F31.9 Bipolar disorder, unspecified; E78.5 Hyperlipidemia, unspecified; F41.9 Anxiety disorder, unspecified; K21.9 Gastro-esophageal reflux disease without esophagitis; E66.9 Obesity, unspecified; E78.00 Pure hypercholesterolemia, unspecified; F12.10 Cannabis abuse, uncomplicated; Z68.43 Body mass index [BMI] 50.0-59.9, adult; Z87.891 Personal history of nicotine dependence; Y83.8 Other surgical procedures as the cause of abnormal reaction of the patient, or of later complication, without mention of misadventure at the time of the procedure | CPT/HCPCS: 99213 ==

== ENCOUNTER → 2017-09-09 | Outpatient (CLI) | payer MEDICARE, MEDICAID | END | disposition home or self-care (01) | LOC: PMGWOUND 08:04 | DX: T81.31XD Disruption of external operation (surgical) wound, not elsewhere classified, subsequent encounter (principal); F31.9 Bipolar disorder, unspecified; K21.9 Gastro-esophageal reflux disease without esophagitis; E66.9 Obesity, unspecified; J45.909 Unspecified asthma, uncomplicated; E78.00 Pure hypercholesterolemia, unspecified; F41.8 Other specified anxiety disorders; F12.10 Cannabis abuse, uncomplicated; Z87.891 Personal history of nicotine dependence; Z68.43 Body mass index [BMI] 50.0-59.9, adult; Z72.89 Other problems related to lifestyle; Y83.8 Other surgical procedures as the cause of abnormal reaction of the patient, or of later complication, without mention of misadventure at the time of the procedure | CPT/HCPCS: G0463 ==

== ENCOUNTER 2017-10-14 01:27 | Emergency (ER) | payer MEDICARE, MEDICAID | END 2017-10-14 02:46 | disposition home or self-care (01) | LOC: ER 01:27 | DX: K08.89 Other specified disorders of teeth and supporting structures (principal); E78.00 Pure hypercholesterolemia, unspecified; F42.9 Obsessive-compulsive disorder, unspecified; J45.909 Unspecified asthma, uncomplicated; F43.10 Post-traumatic stress disorder, unspecified; K21.9 Gastro-esophageal reflux disease without esophagitis; F12.10 Cannabis abuse, uncomplicated; F31.9 Bipolar disorder, unspecified; Z88.0 Allergy status to penicillin; Z88.6 Allergy status to analgesic agent; Z88.8 Allergy status to other drugs, medicaments and biological substances | CPT/HCPCS: 99283 ==

== ENCOUNTER 2018-01-03 00:21 | Emergency (ER) | payer MEDICARE, MEDICAID ==
[~2018-01-03] VITALS: Ht 162.6 cm; Wt 131.5 kg
[~2018-01-03 00:21] MED LIST changes: +ACET500T33 PO; +ALPR0.5T PO; +ATOR10TA PO; +CHOL2000 PO; +CLIN150C14 PO; +CYCL10TA2 PO; +HYDR-2758 PO; -HYDROmorphone 2 MG/ML VIAL IV; +LEVO750T31 PO; -LIDOCAINE 1% PF 2 ML VIAL. ID; -LIDOCAINE 2% PF Vial for OR 5 ML VIAL.; +METF500T5 PO; +METH4TAB2 PO; -MIDAZOLAM HCL/PF 2 MG/2 ML VIAL.; +NAPR500T8 PO; +ONDA4TAB10 SL; -ONDANSETRON PF 4 MG/2 ML VIAL. IV; +OSEL75CA PO; +OXYC-327 PO; +PRAZ2CAP2 PO; -PROPOFOL 20 ML IV; -ROCURONIUM 50 MG/5 ML VIAL.; +SERT100T PO; +TRAM-48 PO; -fentaNYL PF VIAL 100 MCG/2 ML VIAL; -fentaNYL PF VIAL 100 MCG/2 ML VIAL IV
[2018-01-03 01:12] LABS: BILIRUBIN,URINE SMALL (NEG); CLARITY,URINE CLEAR; COLOR,URINE YELLOW; NITRITE,URINE NEGATIVE (NEG); PROTEIN,URINE NEGATIVE (NEG-TRACE); UROBILINOGEN,URINE 0.2 mg/dL (0.2 mg/dL)
[2018-01-03 01:20] LABS: BACTERIA,URINE MANY /HPF (0-FEW); RBC,URINE OCC /HPF (0-2); SQUAMOUS EPITHELIAL CELL,UR MOD /LPF
[2018-01-03 01:25] LABS: BASO % 0 % (0-3); EOS # 0.1 x10^3/uL (0.0-0.7); EOS % 1 % (0-3); HEMOGLOBIN 12.3 g/dL (12.0-15.5); LYMPH # 1.6 x10^3/uL (1.0-4.8); LYMPH % 13 % (24-48); MEAN CORPUSCULAR HEMOGLOBIN 27 pg (25-35); MEAN CORPUSCULAR HGB CONC 34 g/dL (31-37); MEAN CORPUSCULAR VOLUME 80 fL (79-100); MONO # 0.5 x10^3/uL (0.0-1.1); MONO % 4 % (0-9); NEUT # 9.7 x10^3uL (1.8-7.7); NEUT % 82 % (31-73); PLATELET COUNT 326 x10^3/uL (140-400); RED BLOOD COUNT 4.49 x10^6/uL (3.50-5.40); RED CELL DISTRIBUTION WIDTH 14.6 % (11.5-14.5); WHITE BLOOD COUNT 11.9 x10^3/uL (4.0-11.0)
[2018-01-03] MEDS ORDERED: IV NORMAL SALINE 1000ML BAG 1,000 ML IV ONE (01:30)
[2018-01-03] MEDS ORDERED: DICYCLOMINE 20 MG/2 ML AMPUL. IM ONE (01:30)
[2018-01-03] MEDS ORDERED: ONDANSETRON PF 4 MG/2 ML VIAL. IV ONE (01:30)
[2018-01-03 01:33] LABS: CALCIUM 8.9 mg/dL (8.5-10.1); CREATININE 0.8 mg/dL (0.6-1.0); GFR 79.9; POTASSIUM 3.8 mmol/L (3.5-5.1)
[2018-01-03 01:40] LABS: ALBUMIN 3.6 g/dL (3.4-5.0); ALBUMIN/GLOBULIN RATIO 0.9 (1.0-1.7); TOTAL BILIRUBIN 0.3 mg/dL (0.2-1.0); TOTAL PROTEIN 7.5 g/dL (6.4-8.2)
[2018-01-03 01:44] VITALS: BP 145/83
--- NOTE | 2018-01-03 01:53 | PHYS DOC ---
Past Medical History Past Medical History: Anxiety, Asthma, Bipolar, Depression, GERD, High Cholesterol, Other Additional Past Medical Histor: OCD, SOCIAL ANXIETY, BORDER LINE PERSONALITY DISORDER, PTSD, CARPAL TUNNEL Past Surgical History: Tonsillectomy Additional Past Surgical Histo: D&C, right r oop Alcohol Use: None Drug Use: Marijuana Adult General Chief Complaint Chief Complaint: MULTIPLE COMPLAINTS HPI HPI Patient is a 37 year old female who presents with complains of abdominal pain, N/V/D, sinus congestion, fatigue, and intermittent dizziness/lightheadedness which started 2 days ago. Patient reports she vomited 3 times yesterday and has had 4 episodes of diarrhea in the past 24 hours. Patient reports she's felt fatigued denying any focal neuro deficits. Patient reports she has diffuse abdominal tenderness and "burning" sensation in her abdomen. Patient reports she has had some positional dizziness and has felt lightheaded denying any headache, syncope, or confusion. She reports she has had sinus congestion denying any sore throat or earache. Patient denies any other family members with illness at home. Patient denies chest pain or palpitations. She has been urinating without symptoms. LMP was last month she denies any vaginal issues. Review of Systems Review of Systems Constitutional: Denies fever or chills Eyes: Denies change in visual acuity,eye pain. Left eye redness denying any discharge bilateral HENT: Denies sore throat- complaints of sinus congestion denying epistaxis Respiratory: Denies cough or shortness of breath Cardiovascular: Denies chest pain or palpitations GI: Complains of diffuse abdominal pain and "burning", nausea with vomiting and diarrhea episodes : Denies urinary symptoms Musculoskeletal: Complains of lower back pain with worsening pain with any repositioning. Denies swelling in extremities Integument: Denies rash Neurologic: Denies headache, focal weakness. Plaints of dizziness and lightheadedness which is worse with repositioning and movements Endocrine: Denies polyuria or polydipsia All other systems were reviewed and found to be within normal limits, except as documented in this note. Current Medications Current Medications Current Medications Medications (Trade) Dose Ordered Sig/Roxanne Start Time Stop Time Status Last Admin Dose Admin Dicyclomine HCl (Bentyl) 20 mg 1X ONCE 01/03/18 01:30 01/03/18 01:31 DC 01/03/18 01:32 20 MG Ondansetron HCl (Zofran) 4 mg 1X ONCE 01/03/18 01:30 01/03/18 01:31 DC 01/03/18 01:32 4 MG Sodium Chloride 1,000 ml @ 1,000 mls/hr 1X ONCE 01/03/18 01:30 01/03/18 02:29 01/03/18 01:32 1,000 MLS/HR Allergies Allergies Allergies Coded Allergies Type Severity Reaction Last Updated Verified paroxetine Allergy Severe CANT BREATH 07/15/17 Yes Penicillins Allergy Intermediate SWELLING 07/15/17 Yes fluoxetine Allergy Intermediate HEART WAS HURTING & FELL TO THE GROUND Yes ibuprofen Allergy Intermediate HARD TO BREATH,THREW UP 07/15/17 Yes Physical Exam Physical Exam Constitutional: Well developed, well nourished, no acute distress, non-toxic appearance. HENT: Normocephalic, atraumatic, bilateral external ears normal, mucous membranes dry/pink, bilat. turbinates swollen. Eyes: PERRLA, no nystagmus, lt injected conjunctiva- no drainage, rt conjunctiva NL, no discharge. [] Neck: Normal range of motion, no tenderness, supple, no gross adenopathy[] Cardiovascular:Heart rate regular rhythm, no murmur [] Lungs & Thorax: Bilateral breath sounds clear to auscultation. Resp. equal/ nonlabored Abdomen: Bowel sounds normal, soft/obese, diffuse tenderness in all abd. with no focal area/distention, no masses, no pulsatile masses. [] Skin: Warm, dry, no erythema, no rash. [] Back: Tender to palp. lower back with no focal area/swelling, no CVA tenderness. [] Extremities: No tenderness, no cyanosis, no clubbing, ROM intact, no edema. [] Neurologic: Alert and oriented X 3, normal motor function, normal sensory function, no focal deficits noted. [] Psychologic: Affect normal, judgement normal, mood normal. [] Current Patient Data Vital Signs Vital Signs Date Time Temp Pulse Resp B/P (MAP) Pulse Ox O2 Delivery O2 Flow Rate FiO2 01/03/18 01:44 88 145/83 (103) 94 Room Air 01/03/18 00:25 98.5 18 98.5 Lab Values Laboratory Tests Test 01/03/18 00:50 01/03/18 01:05 01/03/18 01:15 Urine Collection Type Unknown Urine Color Yellow Urine Clarity Clear Urine pH 5.0 Urine Specific [place] >=1.030 Urine Protein Negative mg/dL (NEG-TRACE) Urine Glucose (UA) Negative mg/dL (NEG) Urine Ketones (Stick) Negative mg/dL (NEG) Urine Blood Negative (NEG) Urine Nitrite Negative (NEG) Urine Bilirubin Small (NEG) Urine Urobilinogen Dipstick 0.2 mg/dL (0.2 mg/dL) Urine Leukocyte Esterase Small (NEG) Urine RBC Occ /HPF (0-2) Urine WBC 5-10 /HPF (0-4) Urine Squamous Epithelial Cells Mod /LPF Urine Bacteria Many /HPF (0-FEW) Urine Mucus Mod /LPF POC Urine HCG, Qualitative Hcg negative (Negative) White Blood Count 11.9 x10^3/uL (4.0-11.0) H Red Blood Count 4.49 x10^6/uL (3.50-5.40) Hemoglobin 12.3 g/dL (12.0-15.5) Hematocrit 36.0 % (36.0-47.0) Mean Corpuscular Volume 80 fL (79-100) Mean Corpuscular Hemoglobin 27 pg (25-35) Mean Corpuscular Hemoglobin Concent 34 g/dL (31-37) Red Cell Distribution Width 14.6 % (11.5-14.5) H Platelet Count 326 x10^3/uL (140-400) Neutrophils (%) (Auto) 82 % (31-73) H Lymphocytes (%) (Auto) 13 % (24-48) L Monocytes (%) (Auto) 4 % (0-9) Eosinophils (%) (Auto) 1 % (0-3) Basophils (%) (Auto) 0 % (0-3) Neutrophils # (Auto) 9.7 x10^3uL (1.8-7.7) H Lymphocytes # (Auto) 1.6 x10^3/uL (1.0-4.8) Monocytes # (Auto) 0.5 x10^3/uL (0.0-1.1) Eosinophils # (Auto) 0.1 x10^3/uL (0.0-0.7) Basophils # (Auto) 0.0 x10^3/uL (0.0-0.2) Sodium Level 140 mmol/L (136-145) Potassium Level 3.8 mmol/L (3.5-5.1) Chloride Level 104 mmol/L (98-107) Carbon Dioxide Level 24 mmol/L (21-32) Anion Gap 12 (6-14) Blood Urea Nitrogen 11 mg/dL (7-20) Creatinine 0.8 mg/dL (0.6-1.0) Estimated GFR (Cockcroft-Gault) 79.9 BUN/Creatinine Ratio 14 (6-20) Glucose Level 130 mg/dL (70-99) H Calcium Level 8.9 mg/dL (8.5-10.1) Magnesium Level 2.0 mg/dL (1.8-2.4) Total Bilirubin 0.3 mg/dL (0.2-1.0) Aspartate Amino Transferase (AST) 20 U/L (15-37) Alanine Aminotransferase (ALT) 32 U/L (14-59) Alkaline Phosphatase 94 U/L (46-116) Total Protein 7.5 g/dL (6.4-8.2) Albumin 3.6 g/dL (3.4-5.0) Albumin/Globulin Ratio 0.9 (1.0-1.7) L Lipase 84 U/L (73-393) Laboratory Tests 01/03/18 01:15 Laboratory Tests 01/03/18 01:15 EKG EKG [] Radiology/Procedures Radiology/Procedures [] Course & Med Decision Making Course & Med Decision Making Pertinent Labs and Imaging studies reviewed. (See chart for details) WBCs 11.9 neuts 9.7 no bands; CMP unremarkable; UA neg. UCG neg. nitrates sm. leuks w/5- 10 WBCs on micro- with pt having no urinary sxs consider contaminated specimen w /pt having diarrhea. 0205: On re-eval. following IV meds/flds pt reports sxs much improved. She denies any dizziness and reports nausea subsided. She has had no episodes of V/ D while in ER. She remains nontoxic in appearance. Test results were discussed. Discussed plans for home discharge w/Rx for Bentyl. Pt will use OTC tylenol as needed for additional pain relief as directed on container. Discussed OTC sports cream for lower back pain. Pt is sitting on side of bed- ice chips provided. Will provide pt with physician referral info to assist with finding PCP for f/u. Discharge instructions discussed and education provided on s&s to return to ER for. Pt is agreeable with discharge plan. [] Dragon Disclaimer Dragon Disclaimer This electronic medical record was generated, in whole or in part, using a voice recognition dictation system. Departure Departure Impression: Primary Impression: Abdominal pain Additional Impressions: Vomiting Diarrhea Dizziness Disposition: HOME, SELF-CARE Condition: STABLE Referrals: NO PCP (PCP) Patient Instructions: Abdominal Pain, Diarrhea, Dizziness, Nausea and Vomiting Scripts Dicyclomine Hcl (DICYCLOMINE HCL) 10 Mg Capsule 10 MG PO QID PRN for abdominal cramping/pain, #10 CAP 0 Refills Prov: PRIYANKA CASTELLANO APRN 01/03/18 Attending Signature Attending Signature I have reviewed the PA/CHEMISTRY TECHNICIAN's note and plan of care. I was available for consultation as needed during the patient's visit in the emergency department. I agree with the clinical impression, plan, and disposition. Problem Qualifiers PRIYANKA CASTELLANO APRN Jan 03, 2018 01:53 RAY OBREGON DO Jan 03, 2018 02:27
[2018-01-03] MEDS ORDERED: DICY10CA3 PO (02:07)
== END 2018-01-03 02:40 | disposition home or self-care (01) ==
LOC: ER 00:21
DX: R10.84 Generalized abdominal pain (principal); R42 Dizziness and giddiness; R19.7 Diarrhea, unspecified; R11.2 Nausea with vomiting, unspecified; R53.83 Other fatigue; J45.909 Unspecified asthma, uncomplicated; F31.9 Bipolar disorder, unspecified; K21.9 Gastro-esophageal reflux disease without esophagitis; E78.00 Pure hypercholesterolemia, unspecified; Z88.0 Allergy status to penicillin; Z88.8 Allergy status to other drugs, medicaments and biological substances
CPT/HCPCS: 36415; 80053; 81001; 81025; 83690; 83735; 85025; 87086; 87186; 96361; 96372; 96374; 99284; J0500; J2405; J7030

== ENCOUNTER 2018-05-30 04:47 | Emergency (ER) | payer MEDICARE, MEDICAID ==
[~2018-05-30] VITALS: Ht 162.6 cm; Wt 136.1 kg
[~2018-05-30 04:47] MED LIST changes: +DICY10CA3 PO; -HYDR-2758 PO; +HYDR-2761 PO; +METF500T16 PO; -METF500T5 PO; -OXYC-327 PO; +OXYC1TAB19 PO
[2018-05-30 04:50] VITALS: BP 149/89
[2018-05-30] MEDS ORDERED: CLIN300C8 PO (05:22)
[2018-05-30] MEDS ORDERED: DICL50TA4 PO (05:22)
[2018-05-30] MEDS ORDERED: ALBU2.5V8 INH (05:23)
--- NOTE | 2018-05-30 05:24 | PHYS DOC ---
Past Medical History Past Medical History: Anxiety, Asthma, Bipolar, Depression, GERD, High Cholesterol, Other Additional Past Medical Histor: OCD, SOCIAL ANXIETY, BORDER LINE PERSONALITY DISORDER, PTSD, CARPAL TUNNEL Past Surgical History: Tonsillectomy Additional Past Surgical Histo: D&C, right r oop Smoking: Quit Greater Than 1 Year Alcohol Use: None Drug Use: Marijuana Adult General Chief Complaint Chief Complaint: DENTAL PROBLEM HPI HPI Patient is a 37-year-old female presents to the emergency department for evaluation. She states that her left upper canine tooth has begun to fracture, and she is having some pain there. This has been going on for the past 3-4 days. She denies any fevers or chills or drainage or facial swelling. She denies any sore throat. She states she has a history of asthma but has run out of her inhaler and needs to find a new PCP. There are no alleviating or exacerbating factors to her symptoms, except a palpation of the affected area worsens her symptoms. The patient also states that she has been having right thumb pain after jamming about 5 weeks ago. Review of Systems Review of Systems Constitutional: Denies fever or chills [] Eyes: Denies change in visual acuity, redness, or eye pain [] HENT: Denies nasal congestion or sore throat [] Respiratory: Denies cough or shortness of breath [] Musculoskeletal: Denies back pain or joint pain [] Integument: Denies rash or skin lesions [] Neurologic: Denies headache, focal weakness or sensory changes [] Allergies Allergies Allergies Coded Allergies Type Severity Reaction Last Updated Verified paroxetine Allergy Severe CANT BREATH 07/15/17 Yes Penicillins Allergy Intermediate SWELLING 07/15/17 Yes fluoxetine Allergy Intermediate HEART WAS HURTING & FELL TO THE GROUND Yes ibuprofen Allergy Intermediate HARD TO BREATH,THREW UP 07/15/17 Yes Physical Exam Physical Exam PHYSICAL EXAM: CONSTITUTIONAL: Well developed, well nourished HEAD: normocephalic, atraumatic EENT: PERRL, EOMI. Conjunctivae normal color, sclerae non-icteric; moist mucous membranes. There is decay present on the left upper canine, some missing components of the posterior aspect of the tooth. The remainder of the dentition is fairly intact. NECK: Supple, non-tender; no meningismus. LUNGS: Lungs CTA, breathing even and unlabored. Normal air movement. HEART: Regular rate and rhythm, no murmur CHEST: No deformity; non-tender ABDOMEN: The abdomen is soft, and non-tender, no masses or bruits. EXTREM: Normal ROM; no deformity, no calf tenderness. Normal pulses palpable in all extremities. There is no pedal edema. There is normal range of motion of the right thumb, without any focal bony tenderness to palpation or soft tissue swelling. The patient declined the next. SKIN: No rash; no diaphoresis NEURO: Alert; normal speech and cognition; CN's grossly intact; strength grossly intact without focal deficit. BACK: No CVA TTP. Current Patient Data Vital Signs Vital Signs Date Time Temp Pulse Resp B/P (MAP) Pulse Ox O2 Delivery O2 Flow Rate FiO2 05/30/18 04:50 98.5 85 20 149/89 (109) 96 Room Air 98.5 EKG EKG [] Radiology/Procedures Radiology/Procedures [] Course & Med Decision Making Course & Med Decision Making Patient's condition remained stable. I discussed the importance of dental follow -up. The patient requests a refill of her inhaler, she has been referred to PCP. Return precautions were discussed. Patient has been given resources for dental clinics and local PCPs. Dragon Disclaimer Dragon Disclaimer This electronic medical record was generated, in whole or in part, using a voice recognition dictation system. Departure Departure Impression: Primary Impression: Pain, dental Disposition: 01 HOME, SELF-CARE Condition: STABLE Patient Instructions: Dental Caries Additional Instructions: Follow-up with the dentist of your choice as soon as possible for further evaluation and treatment. Scripts Albuterol Sulfate (PROAIR HFA INHALER) 8.5 Gm Hfa.aer.ad 1 PUFF INH PRN Q6HRS PRN for SHORTNESS OF BREATH, #1 INHALER 0 Refills Prov: JULIAN SWIFT MD 05/30/18 Clindamycin Hcl (CLINDAMYCIN HCL) 300 Mg Capsule 1 CAP PO TID, #21 CAP Prov: JULIAN SWIFT MD 05/30/18 Diclofenac Sodium (DICLOFENAC SODIUM) 50 Mg Tablet.dr 1 TAB PO BID, #20 TAB 0 Refills Prov: JULIAN SWIFT MD 05/30/18 JULIAN SWIFT MD May 30, 2018 05:24
== END 2018-05-30 05:26 | disposition home or self-care (01) ==
LOC: ER 04:47
DX: K08.89 Other specified disorders of teeth and supporting structures (principal); F41.9 Anxiety disorder, unspecified; J45.909 Unspecified asthma, uncomplicated; F31.9 Bipolar disorder, unspecified; K21.9 Gastro-esophageal reflux disease without esophagitis; E78.00 Pure hypercholesterolemia, unspecified; F60.9 Personality disorder, unspecified; F43.10 Post-traumatic stress disorder, unspecified; F42.8 Other obsessive-compulsive disorder; Z90.89 Acquired absence of other organs; Z87.891 Personal history of nicotine dependence; Z88.0 Allergy status to penicillin; Z88.1 Allergy status to other antibiotic agents; Z88.8 Allergy status to other drugs, medicaments and biological substances
CPT/HCPCS: 99283

== ENCOUNTER 2018-08-18 19:22 | Emergency (ER) | payer MEDICARE, MEDICAID ==
[~2018-08-18] VITALS: Ht 162.6 cm; Wt 136.1 kg
[~2018-08-18 19:22] MED LIST changes: +ALBU2.5V8 INH; +CLIN300C8 PO; +DICL50TA4 PO
[2018-08-18 23:18] VITALS: BP 134/87
[2018-08-18] MEDS ORDERED: ALBUTEROL SULFATE 2.5 MG/3 ML NEBU. NEB ONE (23:45)
[2018-08-18] MEDS ORDERED: LIDOCAINE 1% PF 2 ML VIAL. INJ ONE (23:45)
[2018-08-19 00:04] LABS: INFLUENZA A PATIENT NEGATIVE (NEGATIVE); INFLUENZA B PATIENT NEGATIVE (NEGATIVE)
[2018-08-19] MEDS ORDERED: DOXY100C2 PO (00:37)
[2018-08-19] MEDS ORDERED: ALBU2.5V8 INH (00:37)
--- NOTE | 2018-08-19 00:37 | PHYS DOC ---
Past Medical History Past Medical History: Anxiety, Asthma, Bipolar, Depression, GERD, High Cholesterol, Other Additional Past Medical Histor: OCD, SOCIAL ANXIETY, BORDER LINE PERSONALITY DISORDER, PTSD, CARPAL TUNNEL (MULUGETA CABALLERO APRN) Past Surgical History: Tonsillectomy Additional Past Surgical Histo: D&C, right r oop, OVARIAN CYST REMOVED 07/2018 (MULUGETA CABALLERO APRN) Alcohol Use: Rarely Drug Use: Marijuana (MULUGETA CABALLERO APRN) Adult General Chief Complaint Chief Complaint: Congestion HPI HPI Patient is a 38 year old female, accompanied by her boyfriend, with complaints of a productive cough, body aches, fatigue, and congestion since Saturday. Patient states she has felt feverish but has not measured a fever. She does report having one episode of posttussive emesis earlier today. She denies any complaints of severe pain. (MULUGETA CABALLERO APRN) Review of Systems Review of Systems Constitutional: Reports tactile fever, body aches, fatigue Eyes: Denies changes HENT: See history of present illness Respiratory: Reports productive cough, shortness of breath, and wheezing Cardiovascular: No additional information not addressed in HPI [] GI: Denies abdominal pain or diarrhea; see history of present illness Integument: Denies rash or skin lesions [] Neurologic: Denies headache (MULUGETA CABALLERO APRN) Current Medications Current Medications Current Medications Medications (Trade) Dose Ordered Sig/Roxanne Start Time Stop Time Status Last Admin Dose Admin Albuterol Sulfate (Ventolin Neb Soln) 2.5 mg 1X ONCE 08/18/18 23:45 08/18/18 23:46 DC 08/19/18 00:25 2.5 MG Lidocaine HCl (Xylocaine-Mpf 1% 2ml Vial) 6 ml 1X ONCE 08/18/18 23:45 08/18/18 23:46 Cancel (DEBO MEADE MD) Allergies Allergies Allergies Coded Allergies Type Severity Reaction Last Updated Verified paroxetine Allergy Severe CANT BREATH 07/15/17 Yes Penicillins Allergy Intermediate SWELLING 07/15/17 Yes fluoxetine Allergy Intermediate HEART WAS HURTING & FELL TO THE GROUND Yes ibuprofen Allergy Intermediate HARD TO BREATH,THREW UP 07/15/17 Yes (DEBO MEADE MD) Physical Exam Physical Exam Constitutional: Well developed, well nourished, no acute distress, ill appearance. [] HENT: Normocephalic, atraumatic, bilateral external ears normal, oropharynx moist, no oral exudates, nose normal. [] Eyes: conjunctiva normal, no discharge. [] Neck: Normal range of motion, no stridor. [] Cardiovascular:Heart rate regular rhythm, no murmur [] Lungs & Thorax: Bilateral breath sounds coarse with expiratory wheezes and diminished in bases bilaterally Skin: Warm, dry, no erythema, no rash. [] Extremities: No cyanosis, no clubbing, ROM intact, no edema. [] Neurologic: Alert and oriented X 3, no focal deficits noted. [] Psychologic: Affect normal, judgement normal, mood normal. [] (MULUGETA CABALLERO APRN) Current Patient Data Vital Signs Vital Signs Date Time Temp Pulse Resp B/P (MAP) Pulse Ox O2 Delivery O2 Flow Rate FiO2 08/19/18 00:27 97 Room Air 08/18/18 23:18 97.7 91 22 134/87 (103) 97.7 (DEBO MEADE MD) Lab Values Laboratory Tests Test 08/18/18 23:33 Influenza Type A Antigen Negative (NEGATIVE) Influenza Type B Antigen Negative (NEGATIVE) (DEBO MEADE MD) EKG EKG [] (MULUGETA CABALLERO APRN) Radiology/Procedures Radiology/Procedures cxr right mid and lower lobe infiltrates read by Dr. Meade (MULUGETA CABALLERO APRN) Course & Med Decision Making Course & Med Decision Making Pertinent Labs and Imaging studies reviewed. (See chart for details) dx: Right community-acquired pneumonia Prescription written for doxycycline and a Pro Air inhaler. Patient was given a breathing treatment in the emergency department, reported feeling better after the breathing treatment, lungs sounds improved following treatment. Follow-up with primary care doctor if symptoms persist, return to the ER symptoms worsen. Patient verbalized an understanding of home care, medications, follow-up, and return to ED instructions and was in agreement with the plan of care. [] (MULUGETA CABALLERO APRN) Course & Med Decision Making Staff Physician Addendum: I was working in the ER during the course of this patient's visit. I was available for consultation as needed, but I was not directly involved in the care of this patient. (DEBO MEADE MD) Dragon Disclaimer Dragon Disclaimer This electronic medical record was generated, in whole or in part, using a voice recognition dictation system. (MULUGETA CABALLERO APRN) Departure Departure Impression: Primary Impression: Pneumonia Disposition: 01 HOME, SELF-CARE Condition: STABLE Referrals: NO PCP (PCP) Patient Instructions: Pneumonia, Adult, [id number] Additional Instructions: Fill prescription(s) and use as directed. Recommend use of a Cool mist humidifier in room at bedtime. Alternate Tylenol or ibuprofen as needed for pain /fever. Increase clear fluids. Avoid airway triggers such as smoke, fragrance, dust, and pollen. May take [id number] cough suppressants as needed. Follow -up with your primary care doctor if symptoms persist, return to the ER if symptoms worsen. Scripts Albuterol Sulfate (PROAIR HFA INHALER) 8.5 Gm Hfa.aer.ad 2 PUFF INH PRN Q4-6HRS PRN for SHORTNESS OF BREATH for 10 Days, #1 INHALER 0 Refills Prov: MULUGETA CABALLERO APRN 08/19/18 Doxycycline Hyclate (DOXYCYCLINE HYCLATE) 100 Mg Capsule 1 CAP PO BID for 10 Days, #20 CAP 0 Refills Prov: MULUGETA CABALLERO APRN 08/19/18 Problem Qualifiers Primary Impression: Pneumonia Pneumonia type: due to unspecified organism Laterality: right Lung location : unspecified part of lung Qualified Codes: J18.9 - Pneumonia, unspecified organism MULUGETA CABALLERO APRN Aug 19, 2018 00:37 DEBO MEADE MD Aug 24, 2018 05:58
--- NOTE | 2018-08-19 07:40 | RAD ---
CHEST PA LATERAL CLINICAL INDICATION: SOA COMPARISON: 07/31/2017 FINDINGS: Heart is normal in size. Prominent bilateral bronchial markings are seen since. No focal consolidation. No pneumothorax or pleural effusion. Visualized bony thorax is within normal limits. IMPRESSION: Findings suggests bronchitis/atypical/viral infection. Electronically signed by: Wiley Mayorga DO (08/19/2018 7:36 AM) [facility]
== END 2018-08-19 01:18 | disposition home or self-care (01) ==
LOC: ER 19:22
DX: J18.9 Pneumonia, unspecified organism (principal); J45.909 Unspecified asthma, uncomplicated; K21.9 Gastro-esophageal reflux disease without esophagitis; E78.00 Pure hypercholesterolemia, unspecified; F31.9 Bipolar disorder, unspecified; Z90.89 Acquired absence of other organs; Z88.0 Allergy status to penicillin; Z88.8 Allergy status to other drugs, medicaments and biological substances
CPT/HCPCS: 71046; 87804; 94640; 99284; J7613

== ENCOUNTER 2018-12-11 12:27 | Emergency (ER) | payer MEDICARE, MEDICAID ==
[~2018-12-11] VITALS: Ht 162.6 cm; Wt 128.4 kg
[~2018-12-11 12:27] MED LIST changes: +DOXY100C2 PO
[2018-12-11 13:15] VITALS: BP 157/111
--- NOTE | 2018-12-11 13:56 | PHYS DOC ---
Past Medical History Past Medical History: Anxiety, Asthma, Bipolar, Depression, GERD, High Ch olesterol, Other Additional Past Medical Histor: OCD, SOCIAL ANXIETY, BORDERLINE PERSONALITY DISORDER, PTSD, CARPAL TUNNEL Past Surgical History: Tonsillectomy Additional Past Surgical Histo: D&C, R OOPHORECTOMY, OVARIAN CYST REMOVED 07/2018 Alcohol Use: Rarely Drug Use: Marijuana Adult General Chief Complaint Chief Complaint: UPPER EXTREMITY PAIN HPI HPI Patient is a 38 year old female with history of bipolar, depression, anxiety, pre-diabetes type 2 who presents to the ED today complaining of intermittent bilateral arm pain from shoulders to her fingers described as throbbing that began this morning when she woke up. She believes she slept wrong. Patient states the pain is worse on movement. She states she took Tylenol with no relief. She states she doesn't take ibuprofen or any NSAIDs because they don't do anything for her. Denies any fever. Denies any chest pain or shortness of breath Review of Systems Review of Systems Constitutional: Denies fever or chills [] Eyes: Denies change in visual acuity, redness, or eye pain [] HENT: Denies nasal congestion or sore throat [] Respiratory: Denies cough or shortness of breath [] Cardiovascular: No additional information not addressed in HPI [] GI: Denies abdominal pain, nausea, vomiting, bloody stools or diarrhea [] : Denies dysuria or hematuria [] Musculoskeletal: Reports bilateral upper extremity pain Integument: Denies rash or skin lesions [] Neurologic: Denies headache, focal weakness or sensory changes [] All other systems were reviewed and found to be within normal limits, except as documented in this note. Current Medications Current Medications Current Medications Medications (Trade) Dose Ordered Sig/Roxanne Start Time Stop Time Status Last Admin Dose Admin Acetaminophen/ Hydrocodone Bitart (Lortab 5/325) 1 tab 1X ONCE 12/11/18 14:00 12/11/18 14:01 12/11/18 13:52 1 TAB Cyclobenzaprine HCl (Flexeril) 10 mg 1X ONCE 12/11/18 14:00 12/11/18 14:01 12/11/18 13:50 10 MG Allergies Allergies Allergies Coded Allergies Type Severity Reaction Last Updated Verified paroxetine Allergy Severe CANT BREATH 07/15/17 Yes Penicillins Allergy Intermediate SWELLING 07/15/17 Yes fluoxetine Allergy Intermediate HEART WAS HURTING & FELL TO THE GROUND 07/15/17 Yes ibuprofen Allergy Intermediate HARD TO BREATH,THREW UP 07/15/17 Yes Physical Exam Physical Exam Constitutional: Well developed, well nourished, no acute distress, non-toxic appearance. [] HENT: Normocephalic, atraumatic, bilateral external ears normal, oropharynx moist, no oral exudates, nose normal. [] Eyes: PERRLA, EOMI, conjunctiva normal, no discharge. [] Neck: Normal range of motion, no tenderness, supple, no stridor. [] Cardiovascular:Heart rate regular rhythm, no murmur [] Lungs & Thorax: Bilateral breath sounds clear to auscultation [] Abdomen: Bowel sounds normal, soft, no tenderness, no masses, no pulsatile masses. [] Skin: Warm, dry, no erythema, no rash. [] Back: No tenderness, no CVA tenderness. [] Extremities: No tenderness, no cyanosis, no clubbing, ROM intact, no edema. [] Neurologic: Alert and oriented X 3, normal motor function, normal sensory function, no focal deficits noted. [] Psychologic: Affect normal, judgement normal, mood normal. [] Current Patient Data Vital Signs Vital Signs Date Time Temp Pulse Resp B/P (MAP) Pulse Ox O2 Delivery O2 Flow Rate FiO2 12/11/18 13:52 20 96 Room Air 12/11/18 13:15 98.2 99 157/111 (126) 98.2 EKG EKG [] Radiology/Procedures Radiology/Procedures [] Course & Med Decision Making Course & Med Decision Making Pertinent Labs and Imaging studies reviewed. (See chart for details) This is a 38-year-old female patient presenting to the ED today with complaints of bilateral upper extremity pain from her shoulders all the way to fingers that began this morning when she woke up, she believes she slept wrong. I requested we do an EKG, patient refused, she states it's not her heart. She is requesting something for pain. She'll be discharged with cyclobenzaprine and gabapentin. Follow-up with her PCP in 1 week. Dragon Disclaimer Dragon Disclaimer This electronic medical record was generated, in whole or in part, using a voice recognition dictation system. Departure Departure Impression: Primary Impression: Upper extremity pain Disposition: HOME, SELF-CARE Condition: STABLE Referrals: NO PCP (PCP) Follow-up with your doctor in one week Patient Instructions: Musculoskeletal Pain Additional Instructions: You were evaluated in the emergency room for bilateral upper extremity pain. Ta ke the prescribed medications as ordered. Follow-up with your doctor in 1-2 weeks. Scripts Cyclobenzaprine Hcl (CYCLOBENZAPRINE HCL) 10 Mg Tablet 1 TAB PO TID, #30 TAB Prov: FLOR HARMON APRN 12/11/18 Gabapentin (GABAPENTIN ) 300 Mg Capsule 300 MG PO TID for NEUROGENIC PAIN, #20 CAP Prov: FLOR HARMON APRN 12/11/18 Problem Qualifiers Primary Impression: Upper extremity pain Laterality: bilateral Qualified Codes: M79.601 - Pain in right arm; M79.602 - Pain in left arm FLOR HARMON APRN Dec 11, 2018 13:56
[2018-12-11] MEDS ORDERED: CYCLOBENZAPRINE 10 MG TABLET. PO ONE (14:00)
[2018-12-11] MEDS ORDERED: HYDROcodone/APAP 5/325MG 1 TAB TABLET PO ONE (14:00)
[2018-12-11] MEDS ORDERED: GABA300C18 PO (14:06)
[2018-12-11] MEDS ORDERED: CYCL10TA2 PO (14:06)
== END 2018-12-11 14:15 | disposition home or self-care (01) ==
LOC: ER 12:27
DX: M79.601 Pain in right arm (principal); M79.602 Pain in left arm; J45.909 Unspecified asthma, uncomplicated; F31.9 Bipolar disorder, unspecified; K21.9 Gastro-esophageal reflux disease without esophagitis; E78.00 Pure hypercholesterolemia, unspecified; Z88.0 Allergy status to penicillin; Z88.8 Allergy status to other drugs, medicaments and biological substances
CPT/HCPCS: 99283

== ENCOUNTER 2019-02-17 14:16 | Emergency (ER) | payer MEDICARE, MEDICAID ==
[~2019-02-17] VITALS: Ht 162.6 cm; Wt 124.7 kg
[~2019-02-17 14:16] MED LIST changes: +GABA300C18 PO
[2019-02-17 14:41] VITALS: BP 131/79
[2019-02-17] MEDS ORDERED: ORPH100T PO (15:24)
--- NOTE | 2019-02-17 15:24 | PHYS DOC ---
Past Medical History Past Medical History: Anxiety, Asthma, Bipolar, GERD Additional Past Medical Histor: prediabetic, sleep apnea Past Surgical History: Tonsillectomy, Other Additional Past Surgical Histo: ovarian cyst removal Alcohol Use: Rarely Drug Use: Marijuana Adult General Chief Complaint Chief Complaint: LOWER BACK PAIN OR INJURY HPI HPI Patient is a 38 year old female that presents with lower back pain on the left side radiating down the left leg. The patient states her pain is 10/10 in severity and sharp. She states that she has not tried anything prior to arrival. She states that she doesn't remember what she was doing when it started. Review of Systems Review of Systems Constitutional: Denies fever or chills [] Eyes: Denies change in visual acuity, redness, or eye pain [] HENT: Denies nasal congestion or sore throat [] Respiratory: Denies cough or shortness of breath [] Cardiovascular: No additional information not addressed in HPI [] GI: Denies abdominal pain, nausea, vomiting, bloody stools or diarrhea [] : Denies dysuria or hematuria [] Musculoskeletal: Reports lower back pain.] Integument: Denies rash or skin lesions [] Neurologic: Denies headache, focal weakness or sensory changes [] Endocrine: Denies polyuria or polydipsia [] Complete systems were reviewed and found to be within normal limits, except as documented in this note. Allergies Allergies Allergies Coded Allergies Type Severity Reaction Last Updated Verified paroxetine Allergy Severe CANT BREATH 07/15/17 Yes Penicillins Allergy Intermediate SWELLING 07/15/17 Yes fluoxetine Allergy Intermediate HEART WAS HURTING & FELL TO THE GROUND 07/15/17 Yes ibuprofen Allergy Intermediate HARD TO BREATH,THREW UP 07/15/17 Yes Physical Exam Physical Exam Constitutional: Well developed, well nourished, no acute distress, non-toxic appearance. [] HENT: Normocephalic, atraumatic, bilateral external ears normal, oropharynx m oist, no oral exudates, nose normal. [] Eyes: PERRLA, EOMI, conjunctiva normal, no discharge. [] Neck: Normal range of motion, no tenderness, supple, no stridor. [] Cardiovascular:Heart rate regular rhythm, no murmur [] Lungs & Thorax: Bilateral breath sounds clear to auscultation [] Abdomen: Bowel sounds normal, soft, no tenderness, no masses, no pulsatile masses. [] Skin: Warm, dry, no erythema, no rash. [] Back: tenderness to left lower back. Extremities: No tenderness, no cyanosis, no clubbing, ROM intact, no edema. [] Neurologic: Alert and oriented X 3, normal motor function, normal sensory function, no focal deficits noted. [] Psychologic: Affect normal, judgement normal, mood normal. [] Current Patient Data Vital Signs Vital Signs Date Time Temp Pulse Resp B/P (MAP) Pulse Ox O2 Delivery O2 Flow Rate FiO2 02/17/19 14:41 97.8 90 18 131/79 (96) 98 97.8 EKG EKG [] Radiology/Procedures Radiology/Procedures [] Course & Med Decision Making Course & Med Decision Making Pertinent Labs and Imaging studies reviewed. (See chart for details) Appears to be sciatica. Will give IM Norflex and d/c home with script. Dragon Disclaimer Dragon Disclaimer This electronic medical record was generated, in whole or in part, using a voice recognition dictation system. Departure Departure Impression: Primary Impression: Sciatica of left side Disposition: HOME, SELF-CARE Condition: STABLE Referrals: UNKNOWN PCP NAME (PCP) Patient Instructions: Sciatica with [facility] Additional Instructions: Please follow up with primary care doctor. Please get your script filled at any pharmacy. Be aware the muscle relaxer can make you drowsy. Do not drive on it. Scripts Orphenadrine Citrate (ORPHENADRINE CITRATE) 100 Mg Tablet.er 1 TAB PO BID, #20 TAB Prov: RAY MURDOCK APRN 02/17/19 RAY MURDOCK APRN Feb 17, 2019 15:24
[2019-02-17] MEDS ORDERED: ORPHENADRINE CITRATE 60 MG/2 ML VIAL. IM ONE (15:30)
== END 2019-02-17 15:39 | disposition home or self-care (01) ==
LOC: ER 14:16
DX: M54.42 Lumbago with sciatica, left side (principal); F41.9 Anxiety disorder, unspecified; J45.909 Unspecified asthma, uncomplicated; F31.9 Bipolar disorder, unspecified; K21.9 Gastro-esophageal reflux disease without esophagitis; Z90.89 Acquired absence of other organs; Z88.8 Allergy status to other drugs, medicaments and biological substances; Z88.6 Allergy status to analgesic agent; Z88.0 Allergy status to penicillin
CPT/HCPCS: 96372; 99283; J2360

== ENCOUNTER 2020-10-21 23:50 | Emergency (ER) | payer MEDICARE, MEDICAID ==
[~2020-10-21] VITALS: Ht 162.6 cm; Wt 136.4 kg
[~2020-10-21 23:50] MED LIST changes: -CLIN150C14 PO; +CLIN150C15 PO; -CLIN300C8 PO; +CLIN300C9 PO; +ORPH100T PO
[2020-10-22] MEDS ORDERED: PRED20TA PO (01:15)
[2020-10-22] MEDS ORDERED: ALBU2.5V8 IH (01:15)
--- NOTE | 2020-10-22 01:16 | PHYS DOC ---
Past Medical History Past Medical History: Asthma, Bipolar, GERD Additional Past Medical Histor: prediabetes Past Surgical History: Oophorectomy Additional Past Surgical Histo: ovarian cyst removal Smoking Status: Current Every Day Smoker Alcohol Use: Rarely Drug Use: Marijuana General Adult EDM: Chief Complaint: SHORTNESS OF BREATH HPI: HPI: Patient is a 40 year old female presents with a chief complaint of shortness of breath. Patient states shortness of breath started 2 days ago. Patient states symptoms progressed to become worse since onset. Patient describes some difficulty breathing. She denies any fevers chills cough or sputum with production. Patient states the last few days have been hot and her AC at her house has been out. Patient has no associated chest pain. Review of Systems: Review of Systems: Constitutional: Denies fever or chills. [] Eyes: Denies change in visual acuity. [] HENT: Denies nasal congestion or sore throat. [] Respiratory: Denies cough Positive shortness of breath. [] Cardiovascular: Denies chest pain or edema. [] GI: Denies abdominal pain, nausea, vomiting, bloody stools or diarrhea. [] : Denies dysuria. [] Musculoskeletal: Denies back pain or joint pain. [] Integument: Denies rash. [] Neurologic: Denies headache, focal weakness or sensory changes. [] Endocrine: Denies polyuria or polydipsia. [] Lymphatic: Denies swollen glands. [] Psychiatric: Denies depression or anxiety. [] Heart Score: C/O Chest Pain: N/A Risk Factors: Risk Factors: DM, Current or recent (<one month) smoker, HTN, HLP, family history of CAD, obesity. Risk Scores: Score 0 - 3: 2.5% MACE over next 6 weeks - Discharge Home Score 4 - 6: 20.3% MACE over next 6 weeks - Admit for Clinical Observation Score 7 - 10: 72.7% MACE over next 6 weeks - Early Invasive Strategies Current Medications: Current Medications Medications (Trade) Dose Ordered Sig/Roxanne Start Time Stop Time Status Last Admin Dose Admin Albuterol Sulfate (Ventolin Neb Soln) 2.5 mg 1X ONCE 10/22/20 01:30 10/22/20 01:31 Allergies: Allergies: Allergies Coded Allergies Type Severity Reaction Last Updated Verified paroxetine Allergy Severe CANT BREATH 2/12/18 Yes Penicillins Allergy Intermediate SWELLING 07/15/17 Yes fluoxetine Allergy Intermediate HEART WAS HURTING & FELL TO THE GROUND 07/15/17 Yes ibuprofen Allergy Intermediate HARD TO BREATH,THREW UP 07/15/17 Yes Physical Exam: PE: General: alert, no acute distress. Skin: warm, dry and intact. Head:: Normocephalic, atraumatic. Neck: Trachea midline. Eyes: EOMI, Normal conjunctiva, No drainage CARDIOVASCULAR: Regular rate and rhythm RESPIRATORY: No respiratory distress, positive wheeze Back: Full range of motion. MUSCULOSKELETAL: Full range of motion of bilateral upper and lower extremities. GASTROINTESTINAL: Abdomen soft without rebound or guarding. NEUROLOGICAL: Alert and noted to person, place and time. No neurological deficits observed Psychiatric: Cooperative. Normal judgment Current Patient Data: Vital Signs: Vital Signs Date Time Temp Pulse Resp B/P (MAP) Pulse Ox O2 Delivery O2 Flow Rate FiO2 10/22/20 00:07 98.6 96 20 182/80 (114) 97 Room Air 98.6 EKG: EKG: [] Radiology/Procedures: Radiology/Procedures: [] Impression: Chest x-ray wet read no acute abnormality Was treated with albuterol. Patient will be discharged home on prednisone and albuterol. Course & Med Decision Making: Course & Med Decision Making Pertinent Labs and Imaging studies reviewed. (See chart for details) [] Maria Del Carmen Disclaimer: Maria Del Carmen Disclaimer: This electronic medical record was generated, in whole or in part, using a voice recognition dictation system. Departure Departure Impression: Primary Impression: Acute bronchitis Disposition: HOME / SELF CARE / HOMELESS Condition: STABLE Referrals: UNKNOWN PCP NAME (PCP) Patient Instructions: Acute Bronchitis Scripts Albuterol Sulfate (Proair Hfa) 8.5 Gm Hfa.aer.ad 2 PUFF IH PRN Q4-6HRS PRN for wheezing for 21 Days, #1 INHALER 0 Refills Prov: INDIGO HANEY DO 10/22/20 Prednisone (PREDNISONE) 20 Mg Tablet 1 TAB PO UD for 12 Days, #15 TAB Take 2 tabs days 1,2,3 1.5 tabs days 3,4,5 1 tab days 6,7,8 0.5 tab days 9,10,11 Prov: INDIGO HANEY DO 10/22/20 INDIGO HANEY DO October 22, 2020 01:16
[2020-10-22] MEDS ORDERED: ALBUTEROL SULFATE 2.5 MG/3 ML NEBU. NEB ONE (01:30)
[2020-10-22 01:59] VITALS: BP 140/90
--- NOTE | 2020-10-22 07:12 | RAD ---
INDICATION: Reason: shortness of breath / Spl. Instructions: / History: COMPARISON: August 18, 2018 FINDINGS: Single view of chest obtained. Enlarged cardiomediastinal silhouette is again seen. Relative opacities at the lung bases without con solidation elsewhere in the lungs. IMPRESSION: * Enlarged cardiac mediastinal silhouette. * Relative opacities at the lung bases. This could be secondary to overlap of structures but cannot exclude a region of atelectasis or infiltrate given this finding. Electronically signed by: Jose Willis MD (10/22/2020 7:10 AM) [id number]
== END 2020-10-22 02:00 | disposition home or self-care (01) ==
LOC: ER 23:50
DX: J20.9 Acute bronchitis, unspecified (principal); J45.909 Unspecified asthma, uncomplicated; F31.9 Bipolar disorder, unspecified; K21.9 Gastro-esophageal reflux disease without esophagitis; F17.200 Nicotine dependence, unspecified, uncomplicated; Z88.0 Allergy status to penicillin; Z88.8 Allergy status to other drugs, medicaments and biological substances
CPT/HCPCS: 71045; 94640; 99283; J7613